=== PATIENT | male | born 1945 | race Caucasian/White ===

== ENCOUNTER → 2018-04-05 09:00 | Outpatient (CLI) | payer MEDICARE, SELFPAY ==
--- NOTE | 2018-04-05 | DI.CT.S_ITS ---
PROCEDURE: CT ABDOMEN PELVIS W CON INDICATIONS: left kidney pain TECHNIQUE: After the administration of oral and intravenous contrast, 5 mm thick sections acquired from the diaphragms to the symphysis. 5 mm thick coronal and sagittal reformats were performed. For radiation dose reduction, the following was used: automated exposure control, adjustment of mA and/or kV according to patient size. COMPARISON: [facility], US, ABDOMEN COMPLETE, 03/18/2018, 11:17. FINDINGS: Image quality: Excellent. ABDOMEN: Lung bases: There is mild atelectasis or scarring in the lung bases. There are calcified nodules in the right lung base consistent with old granulomatous disease. Heart size is normal. Solid organs: Liver is normal in size and enhancement. Gallbladder is surgically absent. Biliary system is non-dilated. There is mild fatty atrophy of the pancreas. No 5th pancreatic duct dilatation. Spleen is normal in size with small foci of splenic calcifications consistent with old granulomatous disease. No adrenal nodules. Kidneys demonstrate no hydronephrosis. Mild nonspecific perinephric stranding is demonstrated bilaterally. There is a nonobstructing stone within the interpolar region of the right kidney measuring up to 7 mm with attenuation values of approximately 1000 to 1100 Hounsfield units. There is a right renal cyst measuring up to 2.8 cm medially. There is an adjacent slightly lobulated hypoattenuating lesion with attenuation values slightly higher than expected for simple cysts measuring up to 1.9 cm. Peritoneum and bowel: Stomach, small bowel, and colon loops are normal in caliber and wall thickness. No free fluid or air. Nodes and vessels: No retroperitoneal or mesenteric adenopathy. Aorta and inferior vena cava are normal in caliber. Miscellaneous: No ventral hernias. PELVIS: Genitourinary: Bladder wall thickness is normal. Miscellaneous: No inguinal hernias or adenopathy. Bones: No suspicious bony lesions. No vertebral body compression fractures. IMPRESSION: 1. No evidence of hydronephrosis. 2. Nonobstructing right renal stone measuring up to 7 mm. 3. Slightly hyperdense complex right renal cyst measuring up to 1.9 cm. If clinically indicated, further evaluation may be obtained with ultrasound. Dictated by: Sampson Koenig M.D. on 04/05/2018 at 14:03 Approved by: Sampson Koenig M.D. on 04/05/2018 at 14:08
== END ==
PROVIDERS: Family Provider Family Medicine; PCP Family Medicine; Visit Provider Family Medicine
DX: N20.0 Calculus of kidney (principal); N28.1 Cyst of kidney, acquired
CPT/HCPCS: 74177; Q9967

== ENCOUNTER → 2019-03-31 12:40 | Outpatient (CLI) | payer MEDICARE, SELFPAY ==
--- NOTE | 2019-03-31 | DI.MRI.S_ITS ---
PROCEDURE: MR LUMBAR SPINE WO CON INDICATIONS: RIGHT SIDED SCIATICA TECHNIQUE: Noncontrast sagittal T1 spin echo and T2 fast echo, sagittal STIR, axial T1 and T2 fast spin echo through the lumbar spine. In cases with scoliosis, additional coronal T2 fast spin echo may be performed. COMPARISON: [facility], CT, CT ABDOMEN PELVIS W CON, 04/05/2018, 10:25. FINDINGS: Image quality: Excellent. Alignment and Curvature: 5 lumbar type vertebral bodies are present by CT. There is mild, grade 1 retrolisthesis of L1 on L2, L2 on L3, and L3 on L4. Mild grade 1 anterolisthesis of L4 on L5. Bone Marrow: Marrow is of normal overall signal. No acute vertebral body compression fractures. Mild reactive signal within the endplates adjacent to the 1 L2, L2-L3, L3-L4, and L4-L5 intervertebral discs. Moderate reactive signal within the implant adjacent to the L5-S1 intervertebral disc. Left L4-L5 hemilaminotomy has been performed. Spinal Cord: Conus medullaris terminates at the lower L1 level. Visualized cord demonstrates normal signal and size. Paraspinous Soft Tissues: T12-L1: Mild disc height loss and desiccation. Mild diffuse disc bulge. Mild facet and ligamentum flavum hypertrophy. Mild canal stenosis. Mild bilateral foraminal stenosis. L1-L2: Mild disc height loss and desiccation. Mild diffuse disc bulge. Mild bilateral facet hypertrophy. Mild canal stenosis. Mild bilateral foraminal stenosis. L2-L3: Moderate disc height loss and desiccation. Mild diffuse disc bulge. Mild facet and ligament flavum hypertrophy. Mild epidural lipomatosis. Moderate canal stenosis. Mild bilateral foraminal stenosis. L3-L4: Moderate disc height loss and desiccation. Mild diffuse disc bulge. Mild facet and ligamentum flavum hypertrophy. Mild epidural lipomatosis. Moderate canal stenosis. Moderate bilateral foraminal stenosis. L4-L5: Moderate disc height loss and desiccation. Moderate diffuse disc bulge. Moderate facet hypertrophy bilaterally. Moderate canal stenosis. Moderate right greater than left foraminal stenosis. L5-S1: Moderate disc height loss and desiccation. Moderate diffuse disc bulge with superimposed left paracentral disc extrusion, which extends inferiorly within the left anterior epidural space to the lower S1 level, and measures roughly 22 mm craniocaudal by 8 mm anteroposterior by 12 mm transverse. Moderate bilateral facet hypertrophy. Mild canal stenosis. Severe bilateral foraminal stenosis. Bilateral L5 nerve root flattening. Mild lateral deviation of the left S1 nerve root. IMPRESSION: 1. Multilevel degenerative disc and facet disease, as well as ligamentum flavum hypertrophy and epidural lipomatosis. 2. Multilevel canal stenoses, worst at L2-L3, L3-L4, and L4-L5, where there are moderate canal stenoses present. 3. Multilevel foraminal stenoses, worst at L5-S1, where there is severe bilateral foraminal stenosis with bilateral L5 nerve root flattening. Recommend correlation with clinical symptoms to ascertain relevance of this finding. 4. Left L5-S1 disc extrusion causing mild deviation of the left S1 nerve root. Recommend correlation with clinical symptoms to ascertain relevance of this finding. Dictated by: Jania Jesus M.D. on 03/31/2019 at 14:39 Approved by: Jania Jesus M.D. on 03/31/2019 at 14:52
== END ==
PROVIDERS: PCP Family Medicine; Visit Provider Family Medicine
DX: M51.16 Intervertebral disc disorders with radiculopathy, lumbar region (principal); M51.17 Intervertebral disc disorders with radiculopathy, lumbosacral region; M48.061 Spinal stenosis, lumbar region without neurogenic claudication; M48.07 Spinal stenosis, lumbosacral region; E88.2 Lipomatosis, not elsewhere classified
CPT/HCPCS: 72148